=== PATIENT | female | born 1950 | race Caucasian/White ===

== ENCOUNTER → 2016-08-29 | Outpatient (CLI) | payer OTHER ==
--- NOTE | 2016-08-29 16:54 | US ---
Complete Pelvic Sonography (Transabdominal and Endovaginal) Clinical History: 66-year-old female with 4 episodes of postmenopausal bleeding, and a prior negative endometrial biopsy. The patient is G3, P3 and has had a prior section, and is on hormone re placement therapy. ICD-10 Diagnostic Code: N95.0. Technique: A curvilinear 5 MHz transducer was used to sonographically evaluate the pelvis, using a fu ll urinary bladder as a window. To better assess the uterine architecture and the adnexal structures, endovaginal pelvic sonography was also performed. Color and spectral Doppler was used. Comparison Study: None. Findings: Transabdominal Pelvic Sonography: The uterus is mildly anteverted, and normal in size, measuring 8.1 x 5.3 x 3.9 cm. The right and left ovaries are not optimally visualized using this modality. There i s no free fluid in the cul-de-sac. Endovaginal pelvic sonography: The endometrium is thickened and heterogeneous, measuring 8.3 mm, and an endometrial rebiopsy is recommended to exclude neoplasia. There are some benign-appearing nabothi an cysts at the level of the cervix. The right ovary is not visualized. The left ovary appears normal , measuring 1.9 x 1.3 x 1.2 cm. Intraovarian vascular flow is documented. There is no free fluid or a dnexal mass. Impression: 1. The endometrium is heterogeneous and mildly thickened, measuring 8.3 mm, and rebiopsy is recommend ed to exclude carcinoma. 2. Nonvisualization of the right ovary, despite transabdominal and endovaginal protocols. The left ov stacy appears normal.
== END ==
LOC: FIMAGING 14:01
PROVIDERS: ATTEND Physician Assistant
DX: R93.8 Abnormal findings on diagnostic imaging of other specified body structures (principal)

== ENCOUNTER → 2017-08-31 | Outpatient (CLI) | payer OTHER, MEDICARE | LOC: FIMAGING 15:10 | PROVIDERS: ATTEND Obstetrics & Gynecology | DX: Z12.31 Encounter for screening mammogram for malignant neoplasm of breast (principal) ==

== ENCOUNTER → 2018-02-11 | Outpatient (CLI) | payer OTHER, MEDICARE | LOC: BMCIMAGING 14:09 | PROVIDERS: ATTEND Family Medicine | DX: M25.462 Effusion, left knee (principal) ==

== ENCOUNTER → 2018-10-04 | Outpatient (CLI) | payer OTHER, MEDICARE | LOC: FIMAGING 14:14 | DX: Z12.31 Encounter for screening mammogram for malignant neoplasm of breast (principal) ==